=== PATIENT | female | born 1995 | race African-American/Black ===

== ENCOUNTER 2018-02-14 15:19 | Emergency (ER) | payer OTHER ==
[2018-02-14] MEDS: NAPROXEN 250 MG TAB PO (16:00)
[2018-02-14] MEDS: METOCLOPRAMIDE 10 MG TAB PO (16:00)
[2018-02-14] MEDS: AUGMENTIN 875 MG TAB PO (16:00)
== END 2018-02-14 16:31 | disposition home or self-care (01) ==
LOC: M ED 15:19
DX: R51 Headache (principal); J01.90 Acute sinusitis, unspecified; H66.90 Otitis media, unspecified, unspecified ear; R53.83 Other fatigue
CPT/HCPCS: 99282

== ENCOUNTER 2018-02-27 19:39 | Emergency (ER) | payer OTHER ==
[2018-02-27 20:52] LABS: BASO % 0.5 % (0.0-1.0); EOS # 0.1 10^3/uL (0.0-0.50); EOS % 1.9 % (0.0-3.0); HEMATOCRIT 38.5 % (36.0-47.0); HEMOGLOBIN 13.3 g/dl (12.0-15.5); IMMATURE GRANULOCYTE % 0.1 % (0-3.0); LYMPH # 2.8 10^3/uL (1.5-6.5); MEAN CORPUSCULAR HEMOGLOBIN 29.3 pg (27.0-33.0); MEAN CORPUSCULAR HGB CONC 34.5 g/dl (32.0-36.5); MEAN CORPUSCULAR VOLUME 84.8 fl (80.0-96.0); MONO # 0.5 10^3/uL (0.0-0.8); MONO % 7.3 % (0.0-5.0); NEUTROPHILS # 3.8 10^3/uL (1.8-7.7); NEUTROPHILS % 52.2 % (36.0-66.0); PLATELET COUNT, AUTOMATED 281 10^3/uL (150-450); RED BLOOD COUNT 4.54 10^6/uL (4.00-5.40); WHITE BLOOD COUNT 7.3 10^3/uL (4.0-10.0)
[2018-02-27 21:26] LABS: HCG, SERUM QUANTITATIVE 1451 MIU/ML
[2018-02-27] MEDS: RHOGAM 300 MCG (1500 IU) INJ (J2790) IM (23:30)
[2018-02-27 23:54] LABS: AB SCREEN (INDIRECT COOMBS)VIS 1 1
[2018-02-28 01:03] LABS: CHLAMYDIA DNA AMPLIFICATION NEGATIVE (NEGATIVE); GC DNA AMPLIFICATION NEGATIVE (NEGATIVE)
== END 2018-02-28 00:35 | disposition home or self-care (01) ==
LOC: M ED 02-28 00:35
DX: O20.0 Threatened abortion (principal); Z3A.01 Less than 8 weeks gestation of pregnancy
CPT/HCPCS: 76801

== ENCOUNTER 2018-02-28 18:47 | Emergency (ER) | payer OTHER | END 2018-02-28 20:36 | disposition home or self-care (01) | LOC: M ED 18:47 | DX: O26.891 Other specified pregnancy related conditions, first trimester (principal); R11.0 Nausea; O99.89 Other specified diseases and conditions complicating pregnancy, childbirth and the puerperium; N93.9 Abnormal uterine and vaginal bleeding, unspecified; Z3A.01 Less than 8 weeks gestation of pregnancy | CPT/HCPCS: 99282 ==

== ENCOUNTER 2018-05-17 13:13 | Emergency (ER) | payer OTHER ==
[2018-05-17 14:14] LABS: KETONE, URINE AUTO RFX NEGATIVE (NEGATIVE); LEUKOCYTE ESTERASE UR AUTO RFX NEGATIVE (NEGATIVE); NITRITE, URINE AUTO RFX NEGATIVE (NEGATIVE); RBC, URINE AUTO RFX 1 /HPF (0-3); SPECIFIC GRAVITY UR AUTO RFX 1.017 (1.002-1.035); SQUAM EPITHELIAL CELL UR AURFX 1 /HPF (0-6); WBC, URINE AUTO RFX 0 /HPF (0-3)
[2018-05-17 14:37] LABS: BASO % 0.3 % (0.0-1.0); EOS # 0.1 10^3/uL (0.0-0.50); EOS % 1.7 % (0.0-3.0); HEMATOCRIT 35.3 % (36.0-47.0); HEMOGLOBIN 12.3 g/dl (12.0-15.5); IMMATURE GRANULOCYTE % 0.3 % (0-3.0); LYMPH # 2.5 10^3/uL (1.5-6.5); LYMPH % 35.9 % (24.0-44.0); MEAN CORPUSCULAR HEMOGLOBIN 29.3 pg (27.0-33.0); MEAN CORPUSCULAR HGB CONC 34.8 g/dl (32.0-36.5); MONO # 0.5 10^3/uL (0.0-0.8); MONO % 7.5 % (0.0-5.0); NEUTROPHILS # 3.8 10^3/uL (1.8-7.7); NEUTROPHILS % 54.3 % (36.0-66.0); PLATELET COUNT, AUTOMATED 282 10^3/uL (150-450); WHITE BLOOD COUNT 6.9 10^3/uL (4.0-10.0)
[2018-05-17 15:03] LABS: ANION GAP 9 MEQ/L (8-16); BLOOD UREA NITROGEN 7 MG/DL (7-18); CARBON DIOXIDE LEVEL 25 MEQ/L (21-32); CHLORIDE LEVEL 104 MEQ/L (98-107); CREATININE FOR GFR 0.65 MG/DL (0.55-1.30); GLUCOSE, FASTING 89 MG/DL (70-100); POTASSIUM SERUM 3.8 MEQ/L (3.5-5.1); SODIUM LEVEL 138 MEQ/L (136-145)
[2018-05-17 16:10] LABS: HCG, SERUM QUANTITATIVE 21985 MIU/ML
== END 2018-05-17 17:00 | disposition home or self-care (01) ==
LOC: M ED 13:13
DX: O26.891 Other specified pregnancy related conditions, first trimester (principal); R10.2 Pelvic and perineal pain; Z3A.01 Less than 8 weeks gestation of pregnancy
CPT/HCPCS: 76801

== ENCOUNTER 2020-01-25 10:43 | Emergency (ER) | payer OTHER ==
[~2020-01-25] VITALS: Ht 170.2 cm; Wt 76.4 kg
[~2020-01-25 10:43] MED LIST: AUGM875T28 PO; CLAR1TAB2 PO; MUCI600T37 PO; NAPR-837 PO; PRENTAB45 PO
[2020-01-25 12:41] VITALS: BP 111/69
== END 2020-01-25 12:45 | disposition home or self-care (01) ==
LOC: M ED 10:43
DX: L29.2 Pruritus vulvae (principal); R21 Rash and other nonspecific skin eruption

== ENCOUNTER 2020-04-25 07:42 | Emergency (ER) | payer OTHER ==
[~2020-04-25] VITALS: Ht 170.2 cm; Wt 76.8 kg
[2020-04-25] MEDS ORDERED: MACR100C43 PO (09:17)
[2020-04-25 09:25] VITALS: BP 119/63
== END 2020-04-25 09:29 | disposition home or self-care (01) ==
LOC: M ED 07:42
DX: N39.0 Urinary tract infection, site not specified (principal)

== ENCOUNTER 2020-06-12 11:58 | Emergency (ER) | payer OTHER ==
[~2020-06-12] VITALS: Ht 170.2 cm; Wt 76.9 kg
[~2020-06-12 11:58] MED LIST changes: +MACR100C43 PO
[2020-06-12 12:37] LABS: BASO % 0.5 % (0.0-1.0); EOS # 0.1 10^3/uL (0.0-0.5); EOS % 1.8 % (0.0-3.0); HEMATOCRIT 38.2 % (36.0-47.0); HEMOGLOBIN 12.4 g/dl (12.0-15.5); LYMPH # 2.1 10^3/uL (1.5-5.0); MEAN CORPUSCULAR HEMOGLOBIN 27.4 pg (27.0-33.0); MEAN CORPUSCULAR HGB CONC 32.5 g/dl (32.0-36.5); MEAN CORPUSCULAR VOLUME 84.3 fl (80.0-96.0); MONO # 0.6 10^3/uL (0.0-0.8); MONO % 9.9 % (0.0-5.0); NEUTROPHILS # 3.2 10^3/uL (1.5-8.5); NEUTROPHILS % 53.6 % (36.0-66.0); PLATELET COUNT, AUTOMATED 285 10^3/uL (150-450); RED BLOOD COUNT 4.53 10^6/uL (4.00-5.40); WHITE BLOOD COUNT 6.1 10^3/uL (4.0-10.0)
[2020-06-12 13:01] LABS: BLOOD UREA NITROGEN 9 MG/DL (7-18); CALCIUM LEVEL 9.5 MG/DL (8.5-10.1); CARBON DIOXIDE LEVEL 26 MEQ/L (21-32); CHLORIDE LEVEL 106 MEQ/L (98-107); CREATININE FOR GFR 0.74 MG/DL (0.55-1.30); GLOMERULAR FILTRATION RATE > 60.0 (>60); GLUCOSE, FASTING 87 MG/DL (70-100); HCG, SERUM QUANTITATIVE 215 MIU/ML; POTASSIUM SERUM 4.2 MEQ/L (3.5-5.1); SODIUM LEVEL 137 MEQ/L (136-145)
--- NOTE | 2020-06-12 13:17 | REP ---
INDICATION: vaginal bleeding, 5-6 weeks . No available HCG level at this juncture. COMPARISON: None. TECHNIQUE: Transabdominal and transvaginal scanning. FINDINGS: Normal-sized empty uterus is seen with dimensions of 9.2 x 4.7 x 5.3 cm. Endometrial echo is 1.8 cm thick. No intrauterine gestational sac is observed. No yolk sac is seen. No embryonic pole is observed. There is no free fluid in the cul-de-sac. Normal left ovary is seen with dimensions of 2.4 x 2.0 x 2.4 cm. It is Doppler flow is normal, resistive index 0.46. The left ovary measures 5.1 x 3.2 x 2.2 cm. It is Doppler flow is normal, resistive index 0.45. There is a 2.3 x 1.7 x 2.1 cm cyst heterogeneous solid appearing area in the right ovary uncertain significance. There is no gestational sac like structure component to this. IMPRESSION: Nonspecific findings in early . Empty uterus. No visible gestational sac. No free fluid. Question 2.3 cm solid appearing structure in the right ovary. Clinical and possibly sonographic follow-up is recommended. Ectopic cannot be completely excluded. <Electronically signed by Dat Huffman > 06/12/20 [id number]
[2020-06-12] MEDS ORDERED: RHOGAM 300 MCG (1500 IU) INJ (J2790) IM ONE (13:45)
[2020-06-12 15:12] VITALS: BP 120/70
== END 2020-06-12 15:59 | disposition home or self-care (01) ==
LOC: M ED 11:58
DX: O21.9 Vomiting of pregnancy, unspecified (principal); Z3A.01 Less than 8 weeks gestation of pregnancy; N96 Recurrent pregnancy loss
CPT/HCPCS: 76801; 76817; 80048; 81001; 84702; 85025; 86850; 86901; 87086; 93976; 96372; 99283; J2790

== ENCOUNTER → 2020-06-14 | Outpatient (CLI) | payer OTHER | LOC: M LAB 11:53 | PROVIDERS: ATTEND Physician Assistant Medical | DX: O26.859 Spotting complicating pregnancy, unspecified trimester (principal); Z3A.00 Weeks of gestation of pregnancy not specified ==

== ENCOUNTER 2020-06-27 19:07 | Emergency (ER) | payer OTHER ==
[~2020-06-27] VITALS: Ht 170.2 cm; Wt 76.3 kg
[2020-06-27] MEDS ORDERED: ONDA8TAB8 (19:14)
[2020-06-27] MEDS ORDERED: NS 1,000 ML IV ONE (19:45)
[2020-06-27 19:55] LABS: BASO % 0.4 % (0.0-1.0); EOS # 0.1 10^3/uL (0.0-0.5); EOS % 1.5 % (0.0-3.0); HEMATOCRIT 35.7 % (36.0-47.0); HEMOGLOBIN 11.6 g/dl (12.0-15.5); LYMPH % 29.3 % (24.0-44.0); MEAN CORPUSCULAR HEMOGLOBIN 27.2 pg (27.0-33.0); MEAN CORPUSCULAR HGB CONC 32.5 g/dl (32.0-36.5); MEAN CORPUSCULAR VOLUME 83.8 fl (80.0-96.0); MONO # 0.6 10^3/uL (0.0-0.8); MONO % 8.4 % (0.0-5.0); NEUTROPHILS # 4.1 10^3/uL (1.5-8.5); NEUTROPHILS % 60.3 % (36.0-66.0); PLATELET COUNT, AUTOMATED 282 10^3/uL (150-450); RED BLOOD COUNT 4.26 10^6/uL (4.00-5.40); WHITE BLOOD COUNT 6.8 10^3/uL (4.0-10.0)
[2020-06-27] MEDS ORDERED: METOCLOPRAMIDE INJ 10MG/2ML VIAL (J2765 PER 1) IV ONE (20:30)
[2020-06-27 20:39] LABS: BLOOD UREA NITROGEN 7 MG/DL (7-18); CALCIUM LEVEL 9.1 MG/DL (8.5-10.1); CARBON DIOXIDE LEVEL 27 MEQ/L (21-32); CHLORIDE LEVEL 103 MEQ/L (98-107); GLOMERULAR FILTRATION RATE > 60.0 (>60); GLUCOSE, FASTING 88 MG/DL (70-100); HCG, SERUM QUANTITATIVE 33637 MIU/ML; POTASSIUM SERUM 3.7 MEQ/L (3.5-5.1); SODIUM LEVEL 138 MEQ/L (136-145)
[2020-06-27] MEDS ORDERED: REGL10TA6 PO (21:47)
[2020-06-27 21:57] VITALS: BP 134/69
== END 2020-06-27 21:55 | disposition home or self-care (01) ==
LOC: M ED 19:07
DX: O26.891 Other specified pregnancy related conditions, first trimester (principal)
CPT/HCPCS: 36415; 80048; 81001; 84702; 85025; 87086; 96361; 96374; 99284; J2765

== ENCOUNTER 2020-08-16 11:55 | Emergency (ER) | payer OTHER ==
[~2020-08-16] VITALS: Ht 170.2 cm; Wt 77.7 kg
[~2020-08-16 11:55] MED LIST changes: +ONDA8TAB8; +REGL10TA6 PO
[2020-08-16] MEDS ORDERED: NS 1,000 ML IV SCH (13:10)
[2020-08-16 13:45] LABS: BASO % 0.4 % (0.0-1.0); EOS # 0.1 10^3/uL (0.0-0.5); EOS % 1.4 % (0.0-3.0); HEMATOCRIT 32.6 % (36.0-47.0); HEMOGLOBIN 11.2 g/dl (12.0-15.5); LYMPH # 1.8 10^3/uL (1.5-5.0); LYMPH % 25.5 % (24.0-44.0); MEAN CORPUSCULAR HEMOGLOBIN 29.2 pg (27.0-33.0); MEAN CORPUSCULAR HGB CONC 34.4 g/dl (32.0-36.5); MEAN CORPUSCULAR VOLUME 84.9 fl (80.0-96.0); MONO # 0.7 10^3/uL (0.0-0.8); MONO % 9.8 % (0.0-5.0); NEUTROPHILS # 4.4 10^3/uL (1.5-8.5); NEUTROPHILS % 62.6 % (36.0-66.0); PLATELET COUNT, AUTOMATED 233 10^3/uL (150-450); RED BLOOD COUNT 3.84 10^6/uL (4.00-5.40)
[2020-08-16 14:16] LABS: ALBUMIN 3.4 GM/DL (3.2-5.2); ALT/SGPT 14 U/L (12-78); BILIRUBIN,DIRECT 0.1 MG/DL (0.0-0.2); BILIRUBIN,TOTAL 0.4 MG/DL (0.2-1.0); BLOOD UREA NITROGEN 5 MG/DL (7-18); CALCIUM LEVEL 9.1 MG/DL (8.5-10.1); CARBON DIOXIDE LEVEL 26 MEQ/L (21-32); CHLORIDE LEVEL 105 MEQ/L (98-107); CREATININE FOR GFR 0.56 MG/DL (0.55-1.30); GLOMERULAR FILTRATION RATE > 60.0 (>60); GLUCOSE, FASTING 80 MG/DL (70-100); LIPASE 133 U/L (73-393); SODIUM LEVEL 136 MEQ/L (136-145); TOTAL PROTEIN 7.1 GM/DL (6.4-8.2)
--- NOTE | 2020-08-16 14:21 | REP ---
INDICATION: preg abd pain eval for IUP. COMPARISON: None. TECHNIQUE: Transabdominal obstetric sonography. FINDINGS: Scanning through the gravid uterus demonstrates a viable single intrauterine gestation in breech lie. motion is observed and heart rate is recorded at 160 beats per minute. A right lateral placenta is seen, grade 0, without evidence of placenta previa. No gross anomaly is seen. Biometry chart: BPD 2.5 cm, 14 weeks 2 days Head circumference 9.0 cm, 14 weeks 0 days Abdominal circumference 7.5 cm, 14 weeks 0 days Femur length 1.4 cm, 14 weeks 0 days Humeral length 1.4 cm, 13 weeks 6 days HC AC ratio normal 1.20 Cephalic index is 0.79 Estimated weight 88 g, 0 lb 3 oz, 81st percentile for 13 weeks 2 days. IMPRESSION: Viable single intrauterine gestation at 14 weeks 0 days by today's composite sonographic criteria. LITO by today's sonography February 14, 2021. No complication identified. <Electronically signed by Dat Huffman > 08/16/20 [id number]
[2020-08-16 15:29] VITALS: BP 110/56
== END 2020-08-16 16:18 | disposition home or self-care (01) ==
LOC: M ED 11:55
DX: O20.0 Threatened abortion (principal); Z3A.14 14 weeks gestation of pregnancy; Z79.899 Other long term (current) drug therapy

== ENCOUNTER 2020-10-19 20:54 | Outpatient (CLI) | payer OTHER ==
[~2020-10-19] VITALS: Ht 170.2 cm; Wt 79.2 kg
[2020-10-19 21:39] VITALS: BP 116/61
[2020-10-19] MEDS ORDERED: PRENTAB9 PO (21:42)
--- NOTE | 2020-10-19 22:03 | IPNPDOC ---
Obstetrical Progress Note Date of Service Oct 19, 2020 Subjective Ms. Diane is a 24yo at 22+3 presents for shortness of breath. She reports she has had this her entire but over the past 24h it has been worse. She feels like when she is laying on her side she is gasping for air but this resolves when she sits up. She denied exertional dyspnea. She endorsed GERD and reports she is not taking medications for it. She said she does not have GERD sx when she has SOB. She denied URI symptoms, coughing, or chest pain. She denied n/v/d, f/c, dicharge, urinary sx. She on ROS endorsed mild suprapubic pressure. She denied LOF, decreased FM, contractions, VB. Objective Vital Signs Date Time Temp Pulse Resp B/P (MAP) Pulse Ox O2 Delivery O2 Flow Rate FiO2 10/19/20 21:39 99.2 85 18 116/61 (79) Assessment and Plan Additional Comments Ms. Diane is a 24yo at 22+3 presents for shortness of breath present her entire but worse over past 24h. It is positional and resolves when she repositions. It also has not occurred recently. She also had GERD she is not treating and endorsed mild suprapubic pressure on ROS. VS normal. Doptones normal. Normal oxygenation, non-tachycardic. Lungs CTA BL, heart RRR no R/G/M. No leg tenderness. No JVD. No edema. CBC/CMP/BNP revealed anemia. EKG normal. UA normal. UCx pending. Dyspnea is likely positional due to gravid abdomen. Patient educated on left lateral tilt while laying. Strict return precautions for worsening symptoms. Educated on si/sx of PE/DVT. Educated on routine OB return precautions. Ordered Fe outpatient for anemia. Otherwise to follow up at next ANTHONYWANDA NEUMANN DO Oct 19, 2020 22:03
[2020-10-19 22:19] LABS: HEMATOCRIT 29.5 % (36.0-47.0); HEMOGLOBIN 10.1 g/dl (12.0-15.5); MEAN CORPUSCULAR HEMOGLOBIN 30.1 pg (27.0-33.0); MEAN CORPUSCULAR HGB CONC 34.2 g/dl (32.0-36.5); MEAN CORPUSCULAR VOLUME 88.1 fl (80.0-96.0); PLATELET COUNT, AUTOMATED 204 10^3/uL (150-450); RED BLOOD COUNT 3.35 10^6/uL (4.00-5.40); WHITE BLOOD COUNT 9.1 10^3/uL (4.0-10.0)
[2020-10-19 22:29] LABS: APPEARANCE, URINE CLEAR (CLEAR); BACTERIA, URINE AUTO 1+ (NEGATIVE); BILIRUBIN, URINE AUTO NEGATIVE (NEGATIVE); BLOOD, URINE BLOOD NEGATIVE (NEGATIVE); COLOR, URINE YELLOW (YELLOW); GLUCOSE, URINE (UA) AUTO NEGATIVE (NEGATIVE); KETONE, URINE AUTO NEGATIVE (NEGATIVE); LEUKOCYTE ESTERASE, URINE AUTO NEGATIVE (NEGATIVE); MUCUS, URINE SMALL (NEGATIVE); NITRITE, URINE AUTO NEGATIVE (NEGATIVE); PROTEIN, URINE AUTO NEGATIVE (NEGATIVE); RBC, URINE AUTO 0 /HPF (0-3); SQUAMOUS EPITHELIAL CELL UR AU 0 /HPF (0-6); UROBILINOGEN, URINE AUTO 0.2 mg/dL (0.0-2.0); WBC, URINE AUTO 1 /HPF (0-3)
[2020-10-19 22:42] LABS: ALBUMIN 3.1 GM/DL (3.2-5.2); ALT/SGPT 18 U/L (12-78); BILIRUBIN,TOTAL 0.4 MG/DL (0.2-1.0); BLOOD UREA NITROGEN 5 MG/DL (7-18); CALCIUM LEVEL 8.3 MG/DL (8.5-10.1); CARBON DIOXIDE LEVEL 27 MEQ/L (21-32); CHLORIDE LEVEL 106 MEQ/L (98-107); CREATININE FOR GFR 0.49 MG/DL (0.55-1.30); GLOMERULAR FILTRATION RATE > 60.0 (>60); GLUCOSE, FASTING 95 MG/DL (70-100); NT-PRO BNP 21 PG/ML (<125); POTASSIUM SERUM 3.5 MEQ/L (3.5-5.1); SODIUM LEVEL 139 MEQ/L (136-145); TOTAL PROTEIN 6.6 GM/DL (6.4-8.2)
--- NOTE | 2020-10-21 10:55 | ECGEPIP ---
[facility] Test Date: 2020-10-19 Pat Name: FLORENTIN GATES Department: Room: - Gender: Female Insulation Sprayer: MS : [id number] Requested By: WANDA Armstrong Order Number: [id number] Reading MD: Dalton Rodas Measurements Intervals Holcomb Rate: 82 P: 52 CT: 136 QRS: 43 QRSD: 82 T: 42 QT: 376 QTc: 439 Interpretive Statements Normal sinus rhythm No prior tracing in the system Electronically Signed on 10-21-2020 10:55:37 EDT by Dalton Rodas
== END 2020-10-19 23:25 | disposition home or self-care (01) ==
LOC: M LDO 20:54
PROVIDERS: ATTEND Obstetrics & Gynecology
DX: O26.892 Other specified pregnancy related conditions, second trimester (principal); R06.02 Shortness of breath; Z3A.22 22 weeks gestation of pregnancy; O99.612 Diseases of the digestive system complicating pregnancy, second trimester; K21.9 Gastro-esophageal reflux disease without esophagitis
CPT/HCPCS: 36415; 80053; 81001; 83880; 85027; 87086; 93005; G0378; G0463

== ENCOUNTER 2021-02-24 01:10 | Inpatient (IN) | payer OTHER ==
[~2021-02-24] VITALS: Ht 170.2 cm; Wt 86.0 kg
[2021-02-24] VITALS (31 sets, daily range): BP systolic 99–143; BP diastolic 57–89
[~2021-02-24 01:10] MED LIST changes: +PRENTAB9 PO
[2021-02-24] MEDS ORDERED: HOME MED LIST COMPLETE! XX SCH ×2 (01:30→05:20)
[2021-02-24] MEDS ORDERED: LACTATED RINGER'S 1000 ML IV STA (02:34)
[2021-02-24] MEDS ORDERED: OXYTOCIN INJ 10 UNITS/ML VIAL (J2590) IM PRN (02:35)
[2021-02-24] MEDS ORDERED: TRANEXAMIC ACID INJection 1,000 MG in NS 100 ML IV PRN (02:35)
[2021-02-24] MEDS ORDERED: CARBOPROST TROMETHAMINE 250 MCG/ML AMP IM PRN (02:35)
[2021-02-24] MEDS ORDERED: LR 1,000 ML IV SCH (02:35)
[2021-02-24] MEDS ORDERED: OXYTOCIN DRIP 30 UNITS in IV 1 EA IV PRN ×4 (02:35)
[2021-02-24] MEDS ORDERED: OXYTOCIN DRIP 30 UNITS in IV 1 EA IV SCH (02:35)
[2021-02-24] MEDS ORDERED: OXYTOCIN INJ 10 UNITS/ML VIAL (J2590) IV PRN (02:35)
[2021-02-24] MEDS ORDERED: LIDOCAINE 1% MDV 20ML VIAL INFIL PRN (02:35)
--- NOTE | 2021-02-24 02:49 | HPEPDOC ---
Obstetrical History & Physical General Date of Admission 02/24/2021 History of Present Illness 25 YO G1 @ 40+5 by LMP C/W 12 WK US admitted in early labor at full term. reports contactions for hours now. denies any vaginal bleedin, lOF or decreased movement. . She denies any vaginal bleeding, abnormal vaginal discharge, leakage of fluids, urinary symptoms, or regular contractions. She denies any new headaches, visual abnormalities, chest pain, worsening dyspnea, facial swelling, or upper extremity swelling. At this time, she continues to report regular movement Chief Complaint: Contractions, term Care Care: Good Care Dating Final EDC: Feb 19, 2021 Final EDC by: LMP LMP: May 15, 2020 Estimated Date of Confinement: Feb 19, 2021 EGA at Admission: 40 (40+5) Antepartum Course Diagnos(e)s RH NEGATIVE- GIVEN RHOGAM IN1ST TRIMESTER AND 28 WEEKS Past Medical History Past Obstetrical History : Past Obstetrical History: Primgravida Complications: No [employer] History: No pertinent history Past Medical History Surgical History: Denies/None Family History Significant Family History: No pertinent family hx Social History Marital Status: Single Family situation: Spouse/partner home Psychosocial History: No pertinent psych hx * Smoker: non-smoker Alcohol: Denies Drugs: denies Abuse Violence Screening Have you been hit/kicked/slapp: No Have you been sexually assault: No Imunizations Tdap status: current Influenza Status: current Allergies Coded Allergies: No Known Allergies (Unverified , 05/17/18) Medications Scheduled No.137/Iron/Folic Acd ( Vitamin Tablet) 1 Each Tablet, 1 TAB PO DAILY Physical Examination Physical Examination GENERAL: Alert and oriented times three. ABDOMEN: Gravid and non-tender to touch. FETUS: Is vertex (VTX) by sterile vaginal examination (SVE). HEART RATE: Regular rate and rhythm. LUNGS: Clear to auscultation (CTA). EXTREMITIES: No edema. Vital Signs/I&O Vital Signs Date Time Temp Pulse Resp B/P (MAP) Pulse Ox O2 Delivery O2 Flow Rate FiO2 02/24/21 01:27 93 18 130/85 (100) Laboratory Data Urine Culture: No Growth Pertinent Laboratoy Data Blood Type: O- RBC Antibody Screen: Positive (D S/P RHOGAM) HIV: Negative Hepatitis B: Negative Hepatitis C: Unknown Rapid Plasma Reagin: Nonreactive Rubella: Immune Varicella: Immune Chlamydia/Gonorrhea: Negative Quad Screen Test: Negative Cystic Fibrosis: Negative Anatomy Ultrasound Placenta Location: Posterior Normal Anatomy: Yes Placenta Previa: No Vaginal Examination Dilation: 4 cm Effacement: 50% Station: 0 Cervical Consistency: Medium Cervical Position: Posterior Presentation: Cephalic presentation Assessment Heart Rate (FHR): 140 Variability: Moderate Decelerations: None Tocometer Contractions: Yes Frequency: every 1-5 min. Duration: less than 60 seconds Multi-drug resistant Organism: No history of MDRO Assessment/Plan Assessment 25 YO G1 @ 40+5 by LMP C/W 12 WK US admitted in early labor at full term SVE: 50/0 GBS NEG/POS Cephalic by EXAM EFW 3400g RH NEG Plan - Admit to L&D. - Consent signed and given to RN - CBC with type and screen. - EFM x2 - Anesthesia to see - Risks of augmentation with Cytotec, Lawson-Bulb, and Pitocin discussed with patient. Labor and Delivery Counseling We will deliver your baby through the vagina with possible assistance of forceps or vacuum device if needed for maternal or indications. Forceps and vacuum are devices that can assist with vaginal delivery when normal pushing efforts cannot achieve delivery on their own or when delivery is needed in an emergency for baby's well-being. Medications may be required to induce or augment (help) your labor in order to achieve a vaginal delivery. An episiotomy may be required to help your baby to delivery vaginally. You may also require repair of any lacerations or tears of your vagina or vulva that are caused by delivery. In some cases, emergencies can occur that require an emergency section delivery so quickly that there may not be enough time to stop and complete c onsent forms for section. Understand that if this occurs, your providers will discuss the need for a section with you before they proceed with surgery. section is the delivery of your baby through an incision in your abdomen. In some situations, section may be safer to mom and baby than continuing labor and is only performed when clinically indic ated. Risks of vaginal delivery include but are not limited to: Bleeding, infection, injury to the vagina, pelvic structures, injury to baby, damage to the uterus, reactions to anesthesia, uterine rupture, risk of hysterectomy for life threatening bleeding, or . Medications used to induce or augment labor may increase your risk for infection, uterine tachysystole, uterine rupture, heart rate abnormalities, need for emergency delivery or possible hysterectomy, and hemorrhage. Additional risks for use of forceps and vacuum include: increased risk of perineal and vaginal lacerations, risk of urinary or bowel incontinence, increased risk of injury to baby with bruising, scratches, hematomas on the head, or intracranial bleeding. FAINA PATEL MD Feb 24, 2021 02:49
[2021-02-24 03:45] LABS: HEMATOCRIT 34.9 % (36.0-47.0); HEMOGLOBIN 11.6 g/dl (12.0-15.5); MEAN CORPUSCULAR HEMOGLOBIN 27.9 pg (27.0-33.0); MEAN CORPUSCULAR HGB CONC 33.2 g/dl (32.0-36.5); MEAN CORPUSCULAR VOLUME 83.9 fl (80.0-96.0); PLATELET COUNT, AUTOMATED 244 10^3/uL (150-450); RED BLOOD COUNT 4.16 10^6/uL (4.00-5.40); WHITE BLOOD COUNT 8.4 10^3/uL (4.0-10.0)
[2021-02-24] MEDS ORDERED: FENTANYL 2MCG/ML ROPIVACAINE 0.2% IN 0.9% NACL 100ML IVBAG As Ordered ONE (04:19)
[2021-02-24] MEDS ORDERED: OXYTOCIN 30 UNITS IN 0.9% NaCl 500ML IV BAG (J2590) As Ordered ONE (04:54)
[2021-02-24] MEDS: LR 1,000 ML IV SCH ×2 (05:21→11:26)
[2021-02-24] MEDS ORDERED: FENTANYL/ROPIVACAINE/NACL BAG 100 ML EPIDURAL SCH (05:55)
[2021-02-24] MEDS ORDERED: EPIDURAL COMMENT XX SCH (05:55)
[2021-02-24] MEDS ORDERED: LACTATED RINGER'S 1000 ML IV PRN (05:55)
[2021-02-24] MEDS ORDERED: NALOXONE INJ 0.4MG/1ML VIAL (J2310 PER 1MG) IV PRN (05:55)
[2021-02-24] MEDS ORDERED: ePHEDrine SULFATE 25 MG/5 ML(5MG/ML) SYRINGE IV PRN (05:55)
[2021-02-24] MEDS ORDERED: diphenhydrAMINE 50MG/ML VIAL (J1200) IV PRN (05:55)
[2021-02-24] MEDS ORDERED: ONDANSETRON 4MG/2ML VIAL IV PRN (05:55)
[2021-02-24] MEDS ORDERED: REFRIGERATOR IV KEYS XX PRN (05:55)
[2021-02-24] MEDS ORDERED: EPIDURAL/PCA KEYS XX PRN (05:55)
[2021-02-24] MEDS: PRENATAL VITAMINS CHEWABLE TABLET PO SCH (09:00)
--- NOTE | 2021-02-24 09:26 | IPNPDOC ---
Obstetrical Progress Note Date of Service Feb 24, 2021 Subjective to room for assessment. patient now comfortable with epidural in place. fht: 140, mod pia,+accels, -Decel--cat I tracing SVE: /0 TOCO: 4-5, 10, PIT 10 A/P Latent labor. cat I tracing. continue labor augmentation with Pitocin. Objective Vital Signs Date Time Temp Pulse Resp B/P (MAP) Pulse Ox O2 Delivery O2 Flow Rate FiO2 02/24/21 07:17 97.7 104 18 124/76 (92) FAINA PATEL MD Feb 24, 2021 09:26
[2021-02-24] MEDS ORDERED: ACETAMINOPHEN 500 MG TAB PO PRN (13:40)
[2021-02-24] MEDS ORDERED: DIBUCAINE 1% OINTMENT 30GM TOP PRN (13:40)
[2021-02-24] MEDS ORDERED: RHOGAM 300 MCG (1500 IU) INJ (J2790) IM SCH (13:40)
[2021-02-24] MEDS ORDERED: ANUSOL HC CREAM 30GM TOP PRN (13:40)
[2021-02-24] MEDS ORDERED: DOCUSATE SODIUM 100MG CAPSULE PO PRN (13:40)
--- NOTE | 2021-02-24 13:45 | DNPDOC ---
[facility] Delivery Note Delivery Note DATE OF DELIVERY: [02-24-2021] PREDELIVERY DIAGNOSIS: 40-5/7 weeks' gestation and INDUCTION labor. POST DELIVERY DIAGNOSIS: Delivered. PROCEDURE: Spontaneous vaginal delivery [employer]: Brenda White ANESTHESIA: epidural ESTIMATED BLOOD LOSS: 200 mL. FINDINGS: 9 pound 3 ounce 4170g female infant, Score 9/9, foot cord cord times x1. DELIVERY SUMMARY: Patient is a 25-year-old 1 now para 1who was admitted to labor and delivery for augmentation of labor. She progressed to C/C/+2 and with good maternal effort delivered a viable infant. The infants head delivered OA and the head was allowed to spontaneously restitute CATA. loose nuchal cord noted and delivered through. anterior shoulders delivered with gentle downward traction followed by posterior shoulder and corpus without difficulty. Normal 3-vessel cord clamped x 2 and cut by FOB after 1 minute of delayed cord clamping. Spontaneous cry noted. Infant placed on maternal abdomen for [id number] Cord blood obtained. Placenta delivered spontaneously and inspection of the placenta demonstrated that it was intact. The cord insertion appeared normal. The uterus was cleared of all clots and debris. Fundal massage until firm. 30 units of Pitocin administered per protocol and the patient required no additional uterotonics. Inspection of cervix, perineum, and vaginal wall revealed a 2nd degree laceration that was repaired in the usual fashion. Repeat uterine examination noted uterine tone to be adequate and firm. Mom and stayed in L&D in hemodynamic stable condition upon my departure. Sponge, lap and needle count correct x 2. TRACEY PATEL Staff FAINA PATEL MD Feb 24, 2021 13:45
[2021-02-24] MEDS: IBUPROFEN 800 MG TAB PO PRN (21:30)
[2021-02-25 06:00] VITALS: BP 109/73
--- NOTE | 2021-02-25 07:15 | IPNPDOC ---
Progress Note Date of Service: Feb 25, 2021 Day#: 1 Progress Note SUBJECT: Amada is a 25 yo PPD1 SP od a 9 pound 3 ounce 4170g female , Score 9/9, foot cord cord times x1. at 40+5, doing well. She has been ambulating, voiding spontaneously without issue and tolerating regular diet. Breast feeding without issue. Reports lochia is like a normal period. OBJECTIVE: VITAL SIGNS: Within normal limits, afebrile. Alert and oriented times three. Breath sounds clear to auscultation. Heart rate: Regular rate and rhythm, no murmurs, rubs or gallops. Abdomen: Fundus firm at U-2. Soft, NTTP. ASSESSMENT: Amada is a 25 yo PPD1 SP od a 9 pound 3 ounce 4170g female , Score 9/9, foot cord cord times x1. at 40+5, doing well. Vitals within normal limits, afebrile, hemodynamically stable with no evidence of infection. PLAN: 1. Discharge to home tomorrow 2. Tylenol and Motrin for pain. 3. Encourage breast feeding and ambulation. 4. depo provera for contraception for now 5. Routine PP visit in 6 weeks in clinic. 6. Discussed return precautions at length. VS, I&O, 24H, Fishbone Vital Signs/I&O Vital Signs Date Time Temp Pulse Resp B/P (MAP) Pulse Ox O2 Delivery O2 Flow Rate FiO2 02/24/21 14:44 95 18 113/69 (84) 02/24/21 14:17 98.6 I&O- Last 24 Hours up to 6 AM 02/25/21 06:00 Intake Total 2469 ml Output Total 750 ml Balance 1719 ml FAINA PATEL MD Feb 25, 2021 5:44 am
[2021-02-25] MEDS: PRENATAL VITAMINS CHEWABLE TABLET PO SCH (08:01)
[2021-02-25] MEDS: IBUPROFEN 800 MG TAB PO PRN ×2 (08:02→21:30)
[2021-02-25 18:00] VITALS: BP 100/59
[2021-02-26 05:43] VITALS: BP 99/63
--- NOTE | 2021-02-26 07:05 | IPNPDOC ---
Progress Note Date of Service: Feb 26, 2021 Progress Note SUBJECT: Amada is a 25 yo PPD2 SP od a 9 pound 3 ounce 4170g female , Score 9/9, foot cord cord times x1. at 40+5, doing well. She has been ambulating, voiding spontaneously without issue and tolerating regular diet. Breast feeding without issue. Reports lochia is like a normal period. OBJECTIVE: VITAL SIGNS: Within normal limits, afebrile. Alert and oriented times three. normal work of breathing Heart rate: Regular rate and rhythm, no murmurs, rubs or gallops. Abdomen: Fundus firm at U-2. Soft, NTTP. ASSESSMENT: Amada is a 25 yo PPD2 SP od a 9 pound 3 ounce 4170g female , Score 9/9, foot cord cord times x1. at 40+5, doing well. Vitals within normal limits, afebrile, hemodynamically stable with no evidence of infection. PLAN: 1. Discharge to home today 2. Tylenol and Motrin for pain. 3. Encourage breast feeding and ambulation. 4. depo provera for contraception for now 5. Routine PP visit in 6 weeks in clinic. 6. Discussed return precautions at length. VS, I&O, 24H, Fishbone Vital Signs/I&O Vital Signs Date Time Temp Pulse Resp B/P (MAP) Pulse Ox O2 Delivery O2 Flow Rate FiO2 02/26/21 05:43 97.4 109 18 99/63 (75) 98 Room Air VALERIE CHAVEZ M.D. Feb 26, 2021 07:05
--- NOTE | 2021-02-26 07:06 | OBDS ---
[facility] Obstetrical Discharge Sum. Obstetrical Discharge Summary Date: Feb 26, 2021 Labor Intrapartum: normal labor course. Uncomplicated. DATE OF DELIVERY: [02-24-2021] PREDELIVERY DIAGNOSIS: 40-5/7 weeks' gestation and INDUCTION labor. POST DELIVERY DIAGNOSIS: Delivered. PROCEDURE: Spontaneous vaginal delivery [employer]: Brenda White ANESTHESIA: epidural ESTIMATED BLOOD LOSS: 200 mL. FINDINGS: 9 pound 3 ounce 4170g female , Score 9/9, foot cord cord times x1. DELIVERY SUMMARY: Patient is a 25-year-old 1 now para 1who was admitted to labor and delivery for augmentation of labor. She progressed to C/C/+2 and with good maternal effort delivered a viable . The infants head delivered OA and the head was allowed to spontaneously restitute CATA. loose nuchal cord noted and delivered through. anterior shoulders delivered with gentle downward traction followed by posterior shoulder and corpus without difficulty. Normal 3-vessel cord clamped x 2 and cut by FOB after 1 minute of delayed cord clamping. Spontaneous cry noted. placed on maternal abdomen for [id number] Cord blood obtained. Placenta delivered spontaneously and inspection of the placenta demonstrated that it was intact. The cord insertion appeared normal. The uterus was cleared of all clots and debris. Fundal massage until firm. 30 units of Pitocin administered per protocol and the patient required no additional uterotonics. Inspection of cervix, perineum, and vaginal wall revealed a 2nd degree laceration that was repaired in the usual fashion. Repeat uterine examination noted uterine tone to be adequate and firm. Mom and infant stayed in L&D in hemodynamic stable condition upon my departure. Sponge, lap and needle count correct x 2. Infant Sex: Female Anesthesia: Regional Anesthesia A/P, Post Course List any complications Admission diagnosis: Induction of labor at term . Discharge diagnosis: uncomplicated vaginal delivery Condition at Discharge: stable Discharge Instructions: home Activity: No heavy lifting and recommend strict pelvic rest x6 weeks Diet: regular Medications: tylenol and motrin prn pain Follow-up: call for 6wk PP visit VALERIE CHAVEZ M.D. Feb 26, 2021 07:06
[2021-02-26] MEDS: PRENATAL VITAMINS CHEWABLE TABLET PO SCH (08:06)
[2021-02-26] MEDS: IBUPROFEN 800 MG TAB PO PRN (12:38)
== END 2021-02-26 13:35 | disposition home or self-care (01) | DRG 807 ==
LOC: M LDO 01:10 → M LDI 03:45 → M OBS 16:30
PROVIDERS: ADMIT Obstetrics & Gynecology; ATTEND Obstetrics & Gynecology
PROC: 10E0XZZ Delivery of Products of Conception, External Approach (ICD-10-PCS; principal; 2021-02-24)
PROC: 0KQM0ZZ Repair Perineum Muscle, Open Approach (ICD-10-PCS; 2021-02-24)
DX: O48.0 Post-term pregnancy (principal); Z37.0 Single live birth; Z3A.40 40 weeks gestation of pregnancy; O69.82X0 Labor and delivery complicated by other cord entanglement, without compression, not applicable or unspecified; O70.1 Second degree perineal laceration during delivery